=== PATIENT | male | born 1990 | race Caucasian/White ===

== ENCOUNTER 2017-01-19 08:23 | Emergency (ER) | payer BC ==
[2017-01-19 08:37] VITALS: BP 121/70
--- NOTE | 2017-01-19 09:31 | UC ---
Respiratory Complaint HPI - HPI Summary HPI Summary: 26 yo gentleman c/o last 4 days consistent, albeit wax and wane, left ant lat "lung pain." Onset fairly sudden. Mildly positional but not entirely. Denies sob / palpitations. Denies recent illness. No unexplained fatigue. No recent travel or pressure changes. Nonsmoker, is around occasional 2nd hand smoke. No rash. No fever. No GI issues. Family hx - dad hx bad asthma. - History of Current Complaint Chief Complaint: UCRespiratory Stated Complaint: PAIN IN LFT RIB/LUNG AREA Time Seen by Provider: 01/19/17 09:02 Hx Obtained From: Patient - Allergies/Home Medications Allergies/Adverse Reactions: Allergies Allergy/AdvReac Type Severity Reaction Status Date / Time No Known Allergies Allergy Verified 01/19/17 08:37 Home Medications: Home Medications NK [No Home Medications Reported] 01/19/17 [History Confirmed 01/19/17] PMH/Surg Hx/FS Hx/Imm Hx - Additional Past Medical History Additional PMH: hx chicken pox as a child, but not current or recent rash. Previously Healthy: Yes - Surgical History Surgical History: Yes Surgery Procedure, Year, and Place: Testicular Torsion, 2009, [facility] [place] - Family History Known Family History: Positive: Other - see hpi no hx ptx - Social History Alcohol Use: None Substance Use Type: None Smoking Status (MU): Never Smoked Tobacco - Immunization History Most Recent Influenza Vaccination: NOT CURRENT Review of Systems Constitutional: Negative Skin: Negative Eyes: Negative ENT: Negative Respiratory: Other - see hpi Cardiovascular: Other - see hpi Gastrointestinal: Negative Genitourinary: Negative Motor: Negative Neurovascular: Negative Musculoskeletal: Negative Neurological: Negative Psychological: Negative Is Patient Immunocompromised?: No All Other Systems Reviewed And Are Negative: Yes Physical Exam Triage Information Reviewed: Yes Appearance: Well-Nourished - sitting up. conversing easily and appropriately., Thin Vital Signs: Initial Vital Signs Temp 98.0 F 01/19/17 08:30 Pulse 103 01/19/17 08:30 Resp 18 01/19/17 08:30 BP 121/70 01/19/17 08:30 Pulse Ox 99 01/19/17 08:30 Vital Signs Reviewed: Yes Eye Exam: Normal ENT Exam: Normal Dental Exam: Normal Neck exam: Normal Neck: Positive: Supple, Nontender Respiratory Exam: Other - tender to deep inspiration left lat ant distal chest. no wheeze. Bs are present bilat. Poor full inspiration d/t pain. No rtx. No rash noted or reported. Trachea midline. No stridor, no wheeze. No crepitus. Cardiovascular Exam: Other - HR 100's persistent, regular. Correlates with Left rad pulse. Good general color. nondiaphoretic. Abdominal Exam: Normal Musculoskeletal Exam: Normal - see above Neurological Exam: Normal - nonfocal grossly normal Psychological Exam: Normal - conversing easily and appropriately Skin Exam: Normal - see above Diagnostic Evaluation - Laboratory O2 Sat by Pulse Oximetry: 99 Respiratory Course/Dx - Course Course Of Treatment: EKG - no old ekg. SR at 92 bpm. ? LAE. See EKG. CXR - nad (see meditech report). D/w Mr. Diaz s/sx. Recommend transfer to Emergency Department for further evaluation / management. Mr. Diaz carefully considered, he agrees to go to ED. Declines EMS. 10:33 d/w Xiomara Milligan NP ([place] [facility]) . Questions as posed answered to the best of my ability. - Differential Dx/Diagnosis Provider Diagnoses: chest pain left low Discharge - Discharge Plan Condition: Stable Disposition: TRANS HIGHER LVL OF CARE FAC Referrals: Kaye Rausch MD [Primary Care Provider] - Additional Instructions: Please go to the Emergency Department for further evaluation and treatment. Call 911 if any problems en route. Ultimately you will need to follow up with your primary care provider as well.
--- NOTE | 2017-01-19 10:04 | RAD ---
INDICATION: Left-sided pleuritic chest pain COMPARISON: None TECHNIQUE: PA inspiration and expiration and and lateral dual-energy views were obtained. FINDINGS: Bones/Soft Tissues: There are no acute bony findings. Cardiomediastinal: The cardiomediastinal silhouette is normal. Lungs: There are no infiltrates. There is no pneumothorax. Pleura: There are no pleural effusions. Other: None IMPRESSION: Lungs clear. No pneumothorax.
== END 2017-01-19 10:40 | disposition short-term general hospital (02) ==
LOC: UCCORT 08:23
DX: R07.1 Chest pain on breathing (principal)
CPT/HCPCS: 71020; 93005; 99212; G0463